=== PATIENT | female | born 1950 | race Caucasian/White ===

== ENCOUNTER 2016-07-20 09:41 | Emergency (ER) | payer MEDICARE, OTHER ==
[~2016-07-20] VITALS: Ht 165.1 cm; Wt 65.0 kg
[~2016-07-20 09:41] MED LIST: AMOX875T20 PO; ASPI81 PO; AURA1.4S EACH EAR; BENZ100 PO; CALC600T34 PO; CELE20TA PO; CLOP75 PO; CYAN1000P SQ; D32000CA PO; LEVO100T60 PO; TAB-TAB PO; ZOCO40TA PO
[2016-07-20 09:51] VITALS: BP 143/89; PULSE 90; RESP 18; TEMP 97.9; O2SAT 95
[2016-07-20] MEDS ORDERED: LEVO100T5 PO (10:01)
[2016-07-20] MEDS ORDERED: CHOL50008 PO (10:01)
[2016-07-20] MEDS ORDERED: MULT-135 PO (10:01)
[2016-07-20] MEDS ORDERED: CALC600T25 PO (10:01)
[2016-07-20] MEDS ORDERED: ZOCO40TA PO (10:01)
[2016-07-20] MEDS ORDERED: PLAV75TA29 PO (10:01)
[2016-07-20] MEDS ORDERED: CELE20TA PO (10:01)
[2016-07-20] MEDS ORDERED: DIAZEPAM 10 MG TAB PO ONE (10:30)
[2016-07-20] MEDS ORDERED: CYCLOBENZAPRINE HCL 10 MG TAB PO ONE (10:30)
[2016-07-20] MEDS ORDERED: DIAZEPAM 5 MG TAB PO ONE (10:45)
[2016-07-20] MEDS ORDERED: CYCL1TAB29 PO (11:31)
[2016-07-20] MEDS ORDERED: DIAZ5 PO (11:31)
--- NOTE | 2016-07-20 11:31 | PD ---
HPI Chief Complaint: Musculoskeletal Complaint Time Seen by Provider: 10:13 Travel History International Travel<30 days: No Contact w/Intl Traveler<30days: No Traveled to known affect area: No History of Present Illness HPI 66-year-old female was working in the garden yesterday pulling up weeds. She felt well when she went to bed last night but time goes on her right shoulder and neck cramp on her significantly. She feels as though spasming in her right shoulder. Denies any fever denies any direct trauma. Denies any pain at the time of incident. Denies any focalized weakness states it hurts her when she turns her head to the right or when she abducts her arm. PFSH Past Medical History Arthritis: Yes Atrial Fibrillation: Yes Autoimmune Disease: No Blood Disorders: No Anxiety: Yes Depression: Yes Heart Rhythm Problems: Yes (IRREGULAR HEART BEAT) Cancer: No High Cholesterol: Yes Chemotherapy: No Chest Pain: No Congestive Heart Failure: No Cerebrovascular Accident: Yes (few tia's in past 8 years ago ) Diabetes: No Diminished Hearing: No Endocrine: Yes (crohns) Fibromyalgia: Yes Gastrointestinal Disorders: Yes (CROHN'S DISEASE) GERD: No Glaucoma: No Genitourinary: No Hepatitis: Yes (HEP C ) Hiatal Hernia: No Heparin Induced Thrombocytopen: No Hypertension: No Immune Disorder: No Implanted Vascular Access Dvce: No Musculoskeletal: Yes ("FIBROMYALGIA") Neurologic: Yes Reproductive: No Respiratory: No Myocardial Infarction: No Radiation Therapy: No Sickle Cell Disease: No Thyroid Disease: Yes (HYPOTHYROIDISM) Ulcer: No Tetanus Vaccination: Unknown PNEUMOCCOCAL Vaccine (Year): 2 ?: Not Menopausal: Yes Past Surgical History Abdominal Surgery: Yes (ABDOMINOPLASTY) Appendectomy: No Cholecystectomy: No Hysterectomy: Yes (1992--PARTIAL,OVARIES REMAIN) Tonsillectomy: Yes Other Surgery: Yes (2005--"TUMMY TUCK") Social History Alcohol Use: Yes (OCCASIONALLY) Tobacco Use: No Substance Use: No Allergies-Medications (Allergen,Severity, Reaction): Coded Allergies: Codeine (Verified Allergy, Severe, "RASH", 07/20/16) Cymbalta (Unverified Allergy, Severe, FEVER, YELLOW SKIN, COLD HANDS, 07/20) Morphine (Verified Allergy, Severe, "GET SWOLLEN", 07/20/16) PATIENT STATES " I AM NOT ALLERGIC TO MORPHINE" Sulfa (Verified Allergy, Severe, "SWELL UP", 07/20/16) Lyrica (Verified Allergy, Intermediate, FEVER, COLD HANDS, HALLUCINATIONS , 07/20/16) Reported Meds & Prescriptions Reported Meds & Active Scripts Active Flexeril (Cyclobenzaprine HCl) 10 Mg Tab 10 Mg PO BID Valium (Diazepam) 5 Mg Tab 5 Mg PO BID PRN Reported Calcium (Calcium Carbonate) 600 Mg Tab 1 Tab PO DAILY Multi Vitamin (Multiple Vitamin) 1 Tab Tab 1 Tab PO DAILY Levothyroxine (Levothyroxine Sodium) 100 Mcg Tab 100 Mcg PO DAILY Zocor (Simvastatin) 40 Mg Tab 40 Mg PO DAILY Plavix (Clopidogrel Bisulfate) 75 Mg Tab 75 Mg PO DAILY Celexa (Citalopram Hydrobromide) 20 Mg Tab 20 Mg PO DAILY Vitamin D3 (Cholecalciferol) 5,000 Unit Tab 5,000 Units PO WEEKLY Review of Systems Except as stated in HPI: all other systems reviewed are Neg Physical Exam Narrative GENERAL: Well-nourished, well-developed patient. SKIN: Warm and dry. HEAD: Normocephalic. EYES: No scleral icterus. No injection or drainage. NECK: Supple, trachea midline. No JVD or lymphadenopathy. CARDIOVASCULAR: Regular rate and rhythm without murmurs, gallops, or rubs. RESPIRATORY: Breath sounds equal bilaterally. No accessory muscle use. GASTROINTESTINAL: Abdomen soft, non-tender, nondistended. MUSCULOSKELETAL: There is a palpable spasm in the right trapezius muscle, significant tenderness when she rotates her head to the right. There is full nontender passive range of motion of the right shoulder. Right elbow right wrist and right hand within normal limits. Pulses motor and sensory are intact distally in all 4 extremities. Left upper extremity is normal. There is no midline cervical or thoracic tenderness. BACK: Nontender without obvious deformity. No CVA tenderness. Data Data Last Documented VS Vital Signs Date Time Temp Pulse Resp B/P Pulse Ox O2 Delivery O2 Flow Rate FiO2 07/20/16 11:43 77 16 147/90 96 07/20/16 09:51 97.9 Orders Cyclobenzaprine (Flexeril) (07/20/16 10:30) Diazepam (Valium) (07/20/16 10:30) Diazepam (Valium) (07/20/16 10:45) MDM Medical Decision Making Medical Screen Exam Complete: Yes Emergency Medical Condition: Yes Differential Diagnosis Muscle strain, sprain, spasm, fracture highly unlikely. Narrative Course Patient was roomed emergency department she was given Valium and Flexeril and her pain was easing significantly while in the emergency department after these medicines. She did have palpable spasm. Discussed with her symptomatically management and return to ED criteria. Follow-up the primary care physician. Diagnosis Primary Impression: Strain of right trapezius muscle Qualified Code: S46.811A - Strain of right trapezius muscle, initial encounter Additional Impression: Muscle spasm Med/Other Pt SpecificInfo: Prescription(s) given Scripts Cyclobenzaprine (Flexeril)10 Mg Tab10 Mg PO BID #30 TAB Ref 0 Prov:Moises Hammond MD 07/20/16 Diazepam (Valium)5 Mg Tab5 Mg PO BID PRN (MUSCLE SPASM) #15 TAB Ref 0 Prov:Moises Hammond MD 07/20/16 Disposition: 01 DISCHARGE HOME Condition: Stable Moises Hammond MD Jul 20, 2016 11:31
[2016-07-20 11:43] VITALS: BP 147/90
== END 2016-07-20 11:45 | disposition home or self-care (01) ==
LOC: PHED 09:41
DX: S29.012A Strain of muscle and tendon of back wall of thorax, initial encounter (principal); I48.91 Unspecified atrial fibrillation; Z79.01 Long term (current) use of anticoagulants; E78.00 Pure hypercholesterolemia, unspecified; Z86.73 Personal history of transient ischemic attack (TIA), and cerebral infarction without residual deficits; M79.7 Fibromyalgia; E07.9 Disorder of thyroid, unspecified
CPT/HCPCS: 99283

== ENCOUNTER 2018-05-11 01:18 | Observation (INO) ==
--- NOTE | 2018-05-11 01:41 | ED ---
HPI General Chief Complaint: Pain: Chronic Stated Complaint: severe pain/evac Time Seen by Provider: 05/11/18 01:36 Source: patient and EMS Mode of arrival: EMS Limitations: no limitations History of Present Illness HPI narrative: 68-year-old female with history of fibromyalgia presents to the emergency department by EMS transport from home after her witnessed her to become rigid this morning after awakening from sleep complaining of severe pain. Patient states she was experiencing burning pain all over her body. Patient has history of fibromyalgia. Patient has several medication allergies. Patient states she typically takes only aspirin and rarely takes ibuprofen for her pain control. Patient also has previous history of TIA and is prescribed Plavix. Patient had alcohol consumption last evening 2 margaritas and felt well and was able to ambulate without any difficulty or bed and then awakened from sleep just prior to arrival to the emergency department having severe pain and unable to stand. Patient states that because the pain she could not stand up because of lack of strength or numbness. No no bladder or bowel incontinence other than because the pain is her daughter was assisting her to the bathroom she was not able to get to the bathroom fast enough to control her bowels and did have some swelling of her close. Patient was able to get to the bathroom and then return with her daughter's assistance and change clothing and then the spouse called 911 because did not want him to help her get in bed. Upon EMS arrival they could find no focality on her exam and her NIH score was 0. While they were transporting her from the house to the EMS unit they said they witnessed her to have a 30 second period of becoming unresponsive. Patient awakened immediately without a postictal phase or confusion upon the paper coating supervisor applying pressure to her sternum as she closed and secured the seatbelt for the EMS stretcher. No history of seizure activity and no seizure witnessed and no other episodes of urinary or bowel incontinence and no tongue trauma. Patient presents yelling about having severe burning pain over her entire body. Patient otherwise voicing no complaints has no recent febrile illness and no chest pain no shortness of breath and no recent injury or fall. MD complaint: Reports loss of consciousness (30 seconds per paramedics) Duration of episode: 30 -: second(s) Description of event: Denies tonic-clonic movements, post-event confusion, focal shaking, incontinence, stopped breathing, lost pulse and CPR performed Prodromal symptoms: Reports none; Denies headache, vision changes, lightheaded, chest pain, palpitations, heart racing, shortness of breath, diaphoresis, nausea /vomiting and vertigo Witnessed: yes - by EMS Context: Reports at rest (awakened from sleep), getting out of bed and alcohol use; Denies during exertion, after urination, standing up, new medication, medication non-compliance, illicit drug use, recent illness and related to severe pain Injuries sustained associated with event: Reports none; Denies neck, face, mouth /tongue, head, chest, abdomen, back, LUE, RUE, LLE and RLE Current symptoms: Reports other (intermittent crying due to "severe total body pain-burning") History: Denies seizure disorder, previous syncopal episode, seizure disorder, history of CAD, pacemaker, AICD and family history of sudden Treatments prior to arrival: Reports none Related Data Home Medications Medication Instructions Recorded Confirmed clopidogrel [Plavix] 75 mg PO DAILY 05/11/18 05/11/18 levothyroxine [Synthroid] 25 mcg PO 05/11/18 simvastatin 5 mg PO QPM 05/11/18 05/11/18 Allergies Allergy/AdvReac Type Severity Reaction Status Date / Time codeine Allergy Severe "RASH" Verified 05/11/18 01:37 duloxetine Allergy Severe FEVER, Verified 05/11/18 01:37 YELLOW SKIN, COLD HANDS morphine Allergy Severe "GET Verified 05/11/18 01:37 SWOLLEN" Sulfa (Sulfonamide Allergy Severe "SWELL UP" Verified 05/11/18 01:37 Antibiotics) pregabalin Allergy Intermediate FEVER, Verified 05/11/18 01:37 COLD HANDS, HALLUCINATIONS Review of Systems ROS: all other systems reviewed are negative [facility] Medical History Medical History History of TIA (transient ischemic attack) (Acute) History of fibromyalgia (Acute) History of high cholesterol (Acute) Social History Social History Substance History: No History of Abuse Smoking Status: Former smoker How Often Do You Have a Drink Containing Alcohol: 2 to 4 times a month Recent Travel in [facility] within the Last 8 Weeks: No Recent Out of Country Travel within the Last 8 Weeks: No Exam Narrative Exam Narrative: GENERAL: Well-developed well-nourished anxious appearing female intermittently yelling out complaining of pain over her entire body with burning sensation; GCS 15; NIH SS 0 SKIN: Focused skin assessment warm/dry. HEAD: Atraumatic. Normocephalic. EYES: Pupils equal and round. No scleral icterus. No injection or drainage. ENT: No nasal bleeding or discharge. Mucous membranes pink and moist. NECK: Trachea midline. No JVD. CARDIOVASCULAR: Regular rate and rhythm. No murmur appreciated. RESPIRATORY: No accessory muscle use. Clear to auscultation. Breath sounds equal bilaterally. GASTROINTESTINAL: Abdomen soft, non-tender, nondistended. Hepatic and splenic margins not palpable. MUSCULOSKELETAL: No obvious deformities. No clubbing. No cyanosis. No edema. NEUROLOGICAL: Awake and alert. No obvious cranial nerve deficits. Motor grossly within normal limits. No limb ataxia. No pronator drift. Sensory exam intact. Normal speech. PSYCHIATRIC: Appropriate mood and affect; insight and judgment normal. Course Initial Documented Vital Signs Temperature 98.8 F 05/11/18 01:25 Pulse Rate 93 H 05/11/18 01:25 Respiratory Rate 20 05/11/18 01:25 Blood Pressure 197/117 H 05/11/18 01:25 Pulse Oximetry 97 05/11/18 01:25 Last Documented Vital Signs Temperature 98.8 F 05/11/18 01:25 Pulse Rate 87 05/11/18 02:18 Respiratory Rate 18 05/11/18 02:18 Blood Pressure 142/80 H 05/11/18 02:18 Pulse Oximetry 97 05/11/18 01:35 Medical Decision Making [facility] Narrative Medical decision making narrative: Patient with chronic pain syndrome with syncopal episode witnessed by paramedics approximately 30 seconds in duration with no prior history of syncope placed on color television console monitor with continuous pulse oximetry IV access obtained blood sugar within acceptable postprandial range. Patient administered IV fluids Lactic acid is 2.1 mildly elevated serum ammonia level is not elevated lab values otherwise grossly within normal limits CT brain noncontrast and CT cervical spine revealed no acute process EKG is sinus rhythm with no acute injury Patient monitored and continues to complain of severe pain intermittently with no focality and no obvious visible redness induration ecchymosis abrasion joint pain or swelling. Patient given one-time dose of 0.5 mg of Dilaudid and Zofran will admit for observation for syncope of unclear etiology suspect probable vasovagal event. Discussed with Dr Pate. Medical Screen Exam Complete: Yes Emergency Medical Condition: Yes Differential Diagnosis Differential Diagnosis: Alcohol intoxication, syncope, arrhythmia, seizure, UTI , chronic pain Medical Records Medical records reviewed: Yes I reviewed the patient's medical records. Lab Data Lab results reviewed: Yes I reviewed the patient's lab results. Result diagrams: 05/11/18 02:00 05/11/18 02:00 Lab Results 05/11/18 05/11/18 05/11/18 Range/Units 02:00 02:00 02:00 CBC w Diff Auto diff final WBC 5.5 (4.0-11.0) th/mm3 RBC 4.21 (4.00-5.30) mil/mm3 Hgb 13.0 (11.6-15.3) gm/dL Hct 40.0 (35.0-46.0) % MCV 95.0 (80.0-100.0) fL MCH 30.9 (27.0-34.0) pg MCHC 32.5 (32.0-36.0) % RDW 12.8 (11.6-17.2) % Plt Count 252 (150-450) th/mm3 MPV 7.0 (7.0-11.0) fL Neut % (Auto) 51.8 (16.0-70.0) % Lymph % (Auto) 37.6 (9.0-44.0) % [place] % (Auto) 8.3 H (0.0-8.0) % Eos % (Auto) 1.6 (0.0-4.0) % Baso % (Auto) 0.7 (0.0-2.0) % Neut # (Auto) 2.8 (1.8-7.7) th/mm3 Lymph # (Auto) 2.1 (1.0-4.8) th/mm3 [place] # (Auto) 0.5 (0.0-0.9) th/mm3 Eos # (Auto) 0.1 (0.0-0.4) th/mm3 Baso # (Auto) 0.0 (0.0-0.2) th/mm3 WBC Differential . Differential Comment . Sodium 141 (136-145) meq/L Potassium 3.8 (3.5-5.1) meq/L Chloride 111 H (98-107) meq/L Carbon Dioxide 22.5 (21.0-32.0) meq/L Anion Gap 8 (5-15) meq/L BUN 14 (7-18) mg/dL Creatinine 0.81 (0.50-1.00) mg/dL Estimated GFR 71 L (>89) mL/min Random Glucose 107 H (74-106) mg/dL Lactic Acid 2.1 H (0.4-2.0) mmol/L Calcium 8.5 (8.5-10.1) mg/dL Magnesium 2.1 (1.5-2.5) mg/dL Total Bilirubin 0.3 (0.2-1.0) mg/dL AST 46 H (15-37) U/L ALT 53 (10-53) U/L Alkaline Phosphatase 74 (45-117) U/L Ammonia (11-32) mcmol/L Troponin I Less than 0.02 L (0.02-0.05) ng/mL Total Protein 7.3 (6.4-8.2) g/dL Albumin 3.6 (3.4-5.0) g/dL Urine Color (Yellw/Straw) Urine Clarity (Clear) Urine pH (5.0-8.5) Ur Specific [place] (1.002-1.035) Urine Protein (Neg-Trace) mg/dL Urine Glucose (UA) (Negative) mg/dL Urine Ketones (Negative) mg/dL Urine Occult Blood (Negative) Urine Nitrate (Negative) Urine Bilirubin (Negative) Urine Urobilinogen (Less than 2) mg/dL Ur Leukocyte Esterase (Negative) Urine RBC (0-3) /hpf Urine WBC (0-5) /hpf Ur Squamous Epith Cells (0-5) /hpf Micro UA Comment Ur Microscopic Review Urine Culture Comments Serum Alcohol 154 H (0-5) mg/dL 05/11/18 05/11/18 Range/Units 02:00 03:20 CBC w Diff WBC (4.0-11.0) th/mm3 RBC (4.00-5.30) mil/mm3 Hgb (11.6-15.3) gm/dL Hct (35.0-46.0) % MCV (80.0-100.0) fL MCH (27.0-34.0) pg MCHC (32.0-36.0) % RDW (11.6-17.2) % Plt Count (150-450) th/mm3 MPV (7.0-11.0) fL Neut % (Auto) (16.0-70.0) % Lymph % (Auto) (9.0-44.0) % [place] % (Auto) (0.0-8.0) % Eos % (Auto) (0.0-4.0) % Baso % (Auto) (0.0-2.0) % Neut # (Auto) (1.8-7.7) th/mm3 Lymph # (Auto) (1.0-4.8) th/mm3 [place] # (Auto) (0.0-0.9) th/mm3 Eos # (Auto) (0.0-0.4) th/mm3 Baso # (Auto) (0.0-0.2) th/mm3 WBC Differential Differential Comment Sodium (136-145) meq/L Potassium (3.5-5.1) meq/L Chloride (98-107) meq/L Carbon Dioxide (21.0-32.0) meq/L Anion Gap (5-15) meq/L BUN (7-18) mg/dL Creatinine (0.50-1.00) mg/dL Estimated GFR (>89) mL/min Random Glucose (74-106) mg/dL Lactic Acid (0.4-2.0) mmol/L Calcium (8.5-10.1) mg/dL Magnesium (1.5-2.5) mg/dL Total Bilirubin (0.2-1.0) mg/dL AST (15-37) U/L ALT (10-53) U/L Alkaline Phosphatase (45-117) U/L Ammonia Less than 10 L (11-32) mcmol/L Troponin I (0.02-0.05) ng/mL Total Protein (6.4-8.2) g/dL Albumin (3.4-5.0) g/dL Urine Color Yellow (Yellw/Straw) Urine Clarity Clear (Clear) Urine pH 6.5 (5.0-8.5) Ur Specific [place] 1.010 (1.002-1.035) Urine Protein Negative (Neg-Trace) mg/dL Urine Glucose (UA) Negative (Negative) mg/dL Urine Ketones Negative (Negative) mg/dL Urine Occult Blood Trace (Negative) Urine Nitrate Negative (Negative) Urine Bilirubin Negative (Negative) Urine Urobilinogen 0.2 (Less than 2) mg/dL Ur Leukocyte Esterase Negative (Negative) Urine RBC 0-3 (0-3) /hpf Urine WBC 0-5 (0-5) /hpf Ur Squamous Epith Cells 0-5 (0-5) /hpf Micro UA Comment Culture not ind Ur Microscopic Review Microscopic reviewed Urine Culture Comments Culture not ind Serum Alcohol (0-5) mg/dL Imaging Data Radiologist's impression: Cervical Spine CT 05/11/18 01:36 CONCLUSION: 1. No acute bony abnormality is seen. 2. Degenerative change. Chest X-Ray 05/11/18 01:36 CONCLUSION: No acute cardiopulmonary process. Head CT 05/11/18 01:36 CONCLUSION: 1. No acute abnormality. 2. Atrophy. . Pelvis X-Ray 05/11/18 01:36 CONCLUSION: Negative AP pelvis. ECG Data EKG Prior to Arrival: No Attestation: I personally reviewed and interpreted this ECG as follows: (EKG normal sinus rhythm rate 80 normal axis and intervals no acute ST elevation or ectopy noted) Discharge Plan Discharge Disposition Patient Disposition: ED Admit(ED Internal Use Only) Discharge Condition Condition: Stable Discharge Order Discharge Orders: ED Use Only Admit Order (Routine); Ordered 05/11/18 Ordered By: Angela Cabrales Discharge Details Diagnosis: Syncope, Fibromyalgia Physicians Team ED Provider: Angela Cabrales Primary Care Provider: Greta Alonso Attending Provider: Deirdre Pate Status ED Status: Admitted Observation Patient
[2018-05-11] MEDS ORDERED: Sod Chloride 0.9% Inj 1,000 ML IV.SIG SCH ×2 (01:45→02:45)
--- NOTE | 2018-05-11 02:09 | XR ---
EXAM DATE: 05/11/2018 1:54 AM EST AGE/SEX: 68 years / Female INDICATIONS: Chest pain. CLINICAL DATA: This is the patient's initial encounter. Patient reports that signs and symptoms have been present for 1 day and indicates a pain score of 10/10. MEDICAL/SURGICAL HISTORY: . Fibromyalgia. None. COMPARISON: No prior exams available for comparison. FINDINGS: A single AP view of the chest demonstrates the lungs to be symmetrically aerated without evidence of mass, infiltrate or effusion. The cardiomediastinal contours are unremarkable. Osseous structures a re intact. CONCLUSION: No acute cardiopulmonary process. Electronically signed by: Raad Spencer MD Board Certified Radiologist 05/11/2018 2:08 AM EST
--- NOTE | 2018-05-11 02:10 | XR ---
EXAM DATE: 05/11/2018 1:55 AM EST AGE/SEX: 68 years / Female INDICATIONS: Pelvic pain with no known trauma. CLINICAL DATA: This is the patient's initial encounter. Patient reports that signs and symptoms have been present for 1 day and indicates a pain score of 10/10. MEDICAL/SURGICAL HISTORY: . Fibromyalgia. None. COMPARISON: No prior exams available for comparison. FINDINGS: Examination of the pelvis demonstrates no evidence of fracture or dislocation. Bony mineralization i s normal. There is no widening of the sacroiliac joints. No foreign body is identified. Calcificati ons are seen in the pelvis presumably related to phleboliths. CONCLUSION: Negative AP pelvis. Electronically signed by: Raad Spencer MD Board Certified Radiologist 05/11/2018 2:09 AM EST
[2018-05-11 02:15] LABS: Baso % (Auto) 0.7 % (0.0-2.0); Eos # (Auto) 0.1 th/mm3 (0.0-0.4); Eos % (Auto) 1.6 % (0.0-4.0); Lymph # (Auto) 2.1 th/mm3 (1.0-4.8); Lymph % (Auto) 37.6 % (9.0-44.0); Mean Corpuscular HGB Conc 32.5 % (32.0-36.0); Mean Corpuscular Hemoglobin 30.9 pg (27.0-34.0); Mono # (Auto) 0.5 th/mm3 (0.0-0.9); Mono % (Auto) 8.3 % (0.0-8.0); Neut # (Auto) 2.8 th/mm3 (1.8-7.7); Neut % (Auto) 51.8 % (16.0-70.0); Platelet Count 252 th/mm3 (150-450); Red Blood Count 4.21 mil/mm3 (4.00-5.30); Red Cell Distribution Width 12.8 % (11.6-17.2); White Blood Count 5.5 th/mm3 (4.0-11.0)
[2018-05-11 02:21] LABS: Chloride 111 meq/L (98-107); Potassium 3.8 meq/L (3.5-5.1); Sodium 141 meq/L (136-145)
[2018-05-11 02:24] LABS: Albumin 3.6 g/dL (3.4-5.0); Anion Gap 8 meq/L (5-15); Calcium 8.5 mg/dL (8.5-10.1); Carbon Dioxide 22.5 meq/L (21.0-32.0); Glucose,Random 107 mg/dL (74-106); Magnesium 2.1 mg/dL (1.5-2.5)
[2018-05-11 02:25] LABS: Blood Urea Nitrogen 14 mg/dL (7-18)
--- NOTE | 2018-05-11 02:25 | CT ---
EXAM DATE: 05/11/2018 2:21 AM EST AGE/SEX: 68 years / Female INDICATIONS: Trauma. Syncope. CLINICAL DATA: This is the patient's initial encounter. Patient reports that signs and symptoms have been present for 1 day and indicates a pain score of 10/10. MEDICAL/SURGICAL HISTORY: None. None. RADIATION DOSE: 64.12 CTDI (mGy) COMPARISON: No prior exams available for comparison. TECHNIQUE: CT of the head without contrast. Using automated exposure control and adjustment of the mA and/or kV according to patient size, radiation dose was kept as low as reasonably achievable to ob tain optimal diagnostic quality images. DICOM format image data is available electronically for revi ew and comparison. FINDINGS: Cerebrum: The ventricles are normal for age. The cortical sulci are widened No evidence of midline s hift, mass lesion, hemorrhage or acute infarction. No extraaxial fluid collections are seen. Posterior Fossa: The cerebellum and brainstem are intact. The 4th ventricle is midline. The cerebe llopontine angle is unremarkable. Extracranial: The visualized portion of the orbits is intact. Skull: The calvaria is intact. No evidence of skull fracture. CONCLUSION: 1. No acute abnormality. 2. Atrophy. . Electronically signed by: Raad Spencer MD Board Certified Radiologist 05/11/2018 2:23 AM EST
[2018-05-11 02:27] LABS: Alanine Aminotransferase 53 U/L (10-53); Aspartate Aminotransferase 46 U/L (15-37); Glomerular Filtration Rate 71 mL/min (>89)
[2018-05-11 02:29] LABS: Total Protein 7.3 g/dL (6.4-8.2)
[2018-05-11 02:30] LABS: Alkaline Phosphatase 74 U/L (45-117)
--- NOTE | 2018-05-11 02:32 | CT ---
EXAM DATE: 05/11/2018 2:24 AM EST AGE/SEX: 68 years / Female INDICATIONS: Trauma. Syncope. CLINICAL DATA: This is the patient's initial encounter. Patient reports that signs and symptoms have been present for 1 day and indicates a pain score of 10/10. MEDICAL/SURGICAL HISTORY: None. None. RADIATION DOSE: 26.01 CTDI (mGy) COMPARISON: No prior exams available for comparison. TECHNIQUE: Contiguous axial images were obtained using helical multirow detector technique. The vol umetric data was post-processed with multiplanar reconstruction in oblique axial, sagittal, and coron al planes. Using automated exposure control and adjustment of the mA and/or kV according to patient s ize, radiation dose was kept as low as reasonably achievable to obtain optimal diagnostic quality alissa ges. DICOM format image data is available electronically for review and comparison. FINDINGS: Vertebrae: Normal vertebral body height. Alignment: Normal. No subluxation. C2-3: The bony spinal canal is normal in size. No evidence of disc bulge or herniation. The neural foramina are bilaterally patent. There is mild left facet hypertrophy. C3-4: The disc demonstrates decreased height. There is mild disc bulge and osteophytic ridging. Ther e is mild uncovertebral hypertrophy there is right facet hypertrophy. There is mild narrowing of the right neural foramina. The left neural foramina is patent. C4-5: The bony spinal canal is normal in size. No evidence of disc bulge or herniation. The neural foramina are bilaterally patent. There is facet hypertrophy. C5-6: The disc demonstrates decreased height. There is mild diffuse disc bulge and osteophytic ridgi ng. Significant stenosis is not seen. There is mild uncovertebral hypertrophy and facet hypertrophy. There is mild narrowing of the right neural foramina. Left neural foramina is patent. C6-7: The bony spinal canal is normal in size. No evidence of disc bulge or herniation. The neural foramina are bilaterally patent. C7-T1: The bony spinal canal is normal in size. No evidence of disc bulge or herniation. The neura l foramina are bilaterally patent. There is facet hypertrophy. CONCLUSION: 1. No acute bony abnormality is seen. 2. Degenerative change. Electronically signed by: Raad Spencer MD Board Certified Radiologist 05/11/2018 2:31 AM EST
[2018-05-11 03:03] LABS: Alcohol 154 mg/dL (0-5)
[2018-05-11 03:29] LABS: Bilirubin,Urine Negative (Negative); Clarity,Urine Clear (Clear); Color,Urine Yellow (Yellw/Straw); Glucose,Urine (UA) Negative (Negative); Leukocyte Esterase,Urine Negative (Negative); Nitrite,Urine Negative (Negative); PH,Urine 6.5 (5.0-8.5); Urobilinogen,Urine 0.2 mg/dL (Less than 2)
[2018-05-11 03:39] LABS: RBC,Urine 0-3 /hpf (0-3); Squamous Epithelial Cell,Urine 0-5 /hpf (0-5); WBC,Urine 0-5 /hpf (0-5)
[2018-05-11] MEDS ORDERED: Acetaminophen 325 MG Tablet PO PRN (03:51)
[2018-05-11] MEDS ORDERED: HYDROmorphone PF Inj 0.5 MG/0.5 ML Syringe IV.PUSH ONE (03:56)
[2018-05-11] MEDS ORDERED: Enoxaparin Inj 40 MG/0.4 ML Syringe SQ SCH (04:00)
[2018-05-11 10:19] VITALS: RESP 21; O2SAT 95
[2018-05-11 10:47] LABS: Amphetamine Screen,Urine Neg (Neg)
[2018-05-11 10:48] LABS: Barbiturate Screen,Urine Neg (Neg)
[2018-05-11 10:51] LABS: Cannabinoid Screen,Urine Neg (Neg)
[2018-05-11 10:57] LABS: Cocaine Screen,Urine Neg (Neg)
[2018-05-11 10:58] LABS: Opiate Screen,Urine Neg (Neg)
--- NOTE | 2018-05-11 12:10 | P.HPIM ---
History of Present Illness Primary Care Physician: Greta Alonso MD History of Present Illness: 68-year-old female with a history of GERD, sleep apnea supposed to be on CPAP, however not on CPAP for the past 3 years, fibromyalgia who presents with several day history of poor sleep, worsening burning pain all over her body, however without any chest pain. She denies any focal weakness. She says she has been frustrated over the past several days that she cannot find a comfortable position to sleep in. She did drink 2 margaritas prior to going to bed last night, however woke up frustrated that she could not find a comfortable sleeping position. She says she has tried gabapentin, Cymbalta, Lyrica in the past, all with side effects. Patient reports drinking a glass of wine every night. She denies any history of alcohol withdrawal Per EMS report, patient was unresponsive for 30 seconds. No loss of bowel or bladder function. Review of Systems All other systems reviewed negative except as stated in HPI PMFSH - History History Provided By: Patient - Medical History Medical History: Medical History (Last Updated 05/11/18 @ 12:01 by Duncan Nagy MD) H/O: hysterectomy History of TIA (transient ischemic attack) History of fibromyalgia History of high cholesterol - Surgical History Surgical History: Surgical History (Last Updated 05/11/18 @ 12:01 by Duncan Nagy MD) H/O carpal tunnel repair - Family History Family History: Family History (Last Updated 05/11/18 @ 12:01 by Duncan Nagy MD) Mother Stroke Father Hypertension - Social History I have reviewed the patient's Social History: Yes - Tobacco History Second Hand Smoke Exposure: Yes Smoking Status: Never smoker - Alcohol History How Often Do You Have a Drink Containing Alcohol: 2 to 3 times a week - Substance Use History Substance History: No History of Abuse - Travel History Recent Travel in the [place] Within the Last 8 Weeks: No Recent Travel Out of the Country Within the Last 8 Weeks: No - Immunization History Tetanus Immunization: Unsure Medications and Allergies Active Medications: Active Medications Acetaminophen (Tylenol) 650 mg PO Q4H PRN PRN Reason: Temp > 100.4 Enoxaparin Sodium (Lovenox Inj) 40 mg SQ Q24H EMPERATRIZ Last Admin: 05/11/18 04:23 Dose: 40 mg Ondansetron HCl (Zofran Inj) 4 mg IV.PUSH Q6H PRN PRN Reason: NAUSEA OR VOMITING Last Admin: 05/11/18 04:22 Dose: 4 mg Sodium Chloride (Ns Flush) 2 ml IV.FLUSH BID EMPERATRIZ Last Admin: 05/11/18 10:33 Dose: 2 ml Sodium Chloride (Ns Flush) 2 ml IV.FLUSH PRN PRN PRN Reason: FLUSH AFTER USING IV ACCESS Allergies Allergy/AdvReac Type Severity Reaction Status Date / Time codeine Allergy Severe "RASH" Verified 05/11/18 01:37 duloxetine Allergy Severe FEVER, Verified 05/11/18 01:37 YELLOW SKIN, COLD HANDS morphine Allergy Severe "GET Verified 05/11/18 01:37 SWOLLEN" Sulfa (Sulfonamide Allergy Severe "SWELL UP" Verified 05/11/18 01:37 Antibiotics) pregabalin Allergy Intermediate FEVER, Verified 05/11/18 01:37 COLD HANDS, HALLUCINATIONS Home Medications Medication Instructions Recorded Confirmed Type clopidogrel [Plavix] 75 mg PO DAILY 05/11/18 05/11/18 History levothyroxine [Synthroid] 25 mcg PO 05/11/18 History simvastatin 5 mg PO QPM 05/11/18 05/11/18 History Exam Vital signs: Vital Signs 05/11/18 01:25 05/11/18 01:35 05/11/18 02:18 Temperature 98.8 F Pulse Rate 93 H 90 87 Respiratory Rate 20 20 18 Blood Pressure 197/117 H 156/102 H 142/80 H Pulse Oximetry 97 97 05/11/18 04:42 05/11/18 04:44 05/11/18 08:00 Temperature 97.7 F Pulse Rate 74 86 Respiratory Rate 18 18 21 Blood Pressure 138/70 155/84 H Pulse Oximetry 97 95 Intake & Output 05/10/18 05/11/18 05/11/18 18:59 06:59 18:59 Intake Total 1999 240 / 240 Output Total 950 / 950 200 / 200 Balance 1050 / 1050 40 / 40 Weight 65 kg 64.8 kg Intake: IV 1999 NS Inj 1,000 ML @ 1000 mls/hr 1999 IV.SIG BOLUS EMPERATRIZ Rx#:[id number] Oral 240 / 240 Output: Urine 950 / 950 200 / 200 Other: # Voids 2 Weight On Admission 143 kg Narrative: GENERAL: Patient sitting up in bed. Appears comfortable. Oriented x4. SKIN: Warm and dry. HEAD: Atraumatic. Normocephalic. EYES: Pupils equal and round. No scleral icterus. No injection or drainage. ENT: No nasal bleeding or discharge. Mucous membranes pink and moist. NECK: Trachea midline. No JVD. CARDIOVASCULAR: Regular rate and rhythm. RESPIRATORY: No accessory muscle use. Clear to auscultation. Breath sounds equal bilaterally. GASTROINTESTINAL: Abdomen soft, non-tender, nondistended. Hepatic and splenic margins not palpable. MUSCULOSKELETAL: Extremities without clubbing, cyanosis, or edema. No obvious deformities. NEUROLOGICAL: Awake and alert. No obvious cranial nerve deficits. Motor grossly within normal limits. Five out of 5 muscle strength in the arms and legs. Normal speech. PSYCHIATRIC: Appropriate mood and affect; insight and judgment normal. Results - Labs CBC & Chem 7: 05/11/18 02:00 05/11/18 02:00 Labs: Short CBC 05/11/18 Range/Units 02:00 WBC 5.5 (4.0-11.0) th/mm3 Hgb 13.0 (11.6-15.3) gm/dL Hct 40.0 (35.0-46.0) % Plt Count 252 (150-450) th/mm3 BMP 05/11/18 02:00 Sodium 141 Potassium 3.8 Chloride 111 H Carbon Dioxide 22.5 BUN 14 Creatinine 0.81 Calcium 8.5 Cardiac Enzymes 05/11/18 05/11/18 Range/Units 02:00 09:20 Troponin I Less than 0.02 L Less than 0.02 L (0.02-0.05) ng/mL Liver Function 05/11/18 Range/Units 02:00 Total Bilirubin 0.3 (0.2-1.0) mg/dL AST 46 H (15-37) U/L ALT 53 (10-53) U/L Alkaline Phosphatase 74 (45-117) U/L Albumin 3.6 (3.4-5.0) g/dL Urine 05/11/18 Range/Units 03:20 Urine Color Yellow (Yellw/Straw) Urine Clarity Clear (Clear) Urine pH 6.5 (5.0-8.5) Ur Specific [place] 1.010 (1.002-1.035) Urine Protein Negative (Neg-Trace) mg/dL Urine Glucose (UA) Negative (Negative) mg/dL - Imaging Impressions Cervical Spine CT 05/11/18 01:36 CONCLUSION: 1. No acute bony abnormality is seen. 2. Degenerative change. Chest X-Ray 05/11/18 01:36 CONCLUSION: No acute cardiopulmonary process. Head CT 05/11/18 01:36 CONCLUSION: 1. No acute abnormality. 2. Atrophy. . Pelvis X-Ray 05/11/18 01:36 CONCLUSION: Negative AP pelvis. Caprini VTE Risk Assessment Caprini VTE Risk Assessment: Moderate/High Risk (score >= 2) Caprini Risk Assessment Model: Point Value = 1 Point Value = 2 Point Value = 3 Point Value = 5 Age 41-60 Minor surgery BMI > 25 kg/m2 Swollen legs Varicose veins or History of unexplained or recurrent spontaneous Oral contraceptives or hormone replacement Sepsis (< 1 month) Serious lung disease, including pneumonia (< 1 month) Abnormal pulmonary function Acute myocardial infarction Congestive heart failure (< 1 month) History of inflammatory bowel disease Medical patient at bed rest Age 61-74 Arthroscopic surgery Major open surgery (> 45 min) Laparoscopic surgery (> 45 min) Malignancy Confined to bed (> 72 hours) Immobilizing plaster cast Central venous access Age >= 75 History of VTE Family history of VTE Factor V Leiden Prothrombin [id number] Lupus anticoagulant Anticardiolipin antibodies Elevated serum homocysteine Heparin-induced thrombocytopenia Other congenital or acquired thrombophilia Stroke (< 1 month) Elective arthroplasty Hip, pelvis, or leg fracture Acute spinal cord injury (< 1 month) Prophylaxis Regimen: Total Risk Factor Score Risk Level Prophylaxis Regimen 0-1 Low Early ambulation 2 Moderate Order ONE of the following: *Sequential Compression Device (SCD) *Heparin 5000 units SQ BID 3-4 Higher Order ONE of the following medications: *Heparin 5000 units SQ TID *Enoxaparin/Lovenox 40 mg SQ daily (WT < 150 kg, CrCl > 30 mL/min) *Enoxaparin/Lovenox 30 mg SQ daily (WT < 150 kg, CrCl > 10-29 mL/min) *Enoxaparin/Lovenox 30 mg SQ BID (WT < 150 kg, CrCl > 30 mL/min) AND/OR *Sequential Compression Device (SCD) 5 or more Highest Order ONE of the following medications: *Heparin 5000 units SQ TID (Preferred with Epidurals) *Enoxaparin/Lovenox 40 mg SQ daily (WT < 150 kg, CrCl > 30 mL/min) *Enoxaparin/Lovenox 30 mg SQ daily (WT < 150 kg, CrCl > 10-29 mL/min) *Enoxaparin/Lovenox 30 mg SQ BID (WT < 150 kg, CrCl > 30 mL/min) AND *Sequential Compression Device (SCD) Assessment and Plan - Plan //Acute exacerbation of fibromyalgia -Imaging negative for injury -Likely due to poor sleep, noncompliance with CPAP. Advised patient to follow- up with primary care for CPAP Ativan at night advised her to stop drinking alcohol to seek medical attention if she experiences tremors or sweating following alcohol cessation. Patient conveys understanding. //Brief episode of inattention last night. Without any loss of bowel or bladder function this episode, and no postictal interim. Inebriated with alcohol level of 154. No focal findings on exam. Discussed Condition With: Patient, nurse. H&P: Quality - VTE Deep Vein Thrombosis/Pulmonary Embolism Present on Admission: No
--- NOTE | 2018-05-11 12:15 | ECG ---
Date Performed: 05/11/2018 Time Performed: 02:36:51 PTAGE: 68 years EKG: Sinus rhythm NORMAL ECG Since the PREVIOUS TRACING , no significant change noted PREVIOUS TRACIN06/14/2011 21.13 DOCTOR: Katt Gaming Interpretating Date/Time 05/11/2018 12:12:30
[2018-05-11 13:38] VITALS: BP 127/75; PULSE 77; TEMP 97.1
--- NOTE | 2018-05-12 13:44 | ECG ---
Date Performed: 05/11/2018 Time Performed: 09:24:22 PTAGE: 68 years EKG: Sinus rhythm NORMAL ECG Since the PREVIOUS TRACING , no significant change noted PREVIOUS TRACIN05/11/2018 02.36 DOCTOR: Russel Shahid Interpretating Date/Time 05/12/2018 13:32:12
== END 2018-05-11 14:00 | disposition home or self-care (01) ==
LOC: PHED 01:18 → PHEDA 01:18 → PH3 07:19
PROVIDERS: ADMIT Internal Medicine; ATTEND Internal Medicine
DX: Y90.6 Blood alcohol level of 120-199 mg/100 ml; M79.7 Fibromyalgia; Z86.73 Personal history of transient ischemic attack (TIA), and cerebral infarction without residual deficits; Z88.5 Allergy status to narcotic agent; Z82.3 Family history of stroke; Z79.02 Long term (current) use of antithrombotics/antiplatelets; R55 Syncope and collapse; E78.00 Pure hypercholesterolemia, unspecified; G47.30 Sleep apnea, unspecified; F10.129 Alcohol abuse with intoxication, unspecified; Z90.710 Acquired absence of both cervix and uterus; Z88.2 Allergy status to sulfonamides; Z82.49 Family history of ischemic heart disease and other diseases of the circulatory system; Z87.891 Personal history of nicotine dependence; K21.9 Gastro-esophageal reflux disease without esophagitis; Z91.19 Patient's noncompliance with other medical treatment and regimen
CPT/HCPCS: 70450; 71010; 71045; 72125; 72170; 80053; 80307; 81001; 82140; 83605; 83735; 84443; 84484; 85025; 90761; 93005; 96361; 96372; 96374; 96375; 97162; 99285; G0378; G8987; G8988; J1170; J1650; J2405; J7030